=== PATIENT | female | born 1970 | race Caucasian/White ===

== ENCOUNTER → 2019-06-08 11:14 | Outpatient (BNVA) | payer BC, SELFPAY | PROVIDERS: Visit Provider Nurse Practitioner Family | DX: E03.9 Hypothyroidism, unspecified (principal) | CPT/HCPCS: 84443 ==

== ENCOUNTER → 2020-11-21 09:51 | Outpatient (BNVA) | payer SELFPAY | PROVIDERS: PCP Nurse Practitioner Family; Visit Provider Nurse Practitioner Family | DX: E03.9 Hypothyroidism, unspecified (principal); Z79.899 Other long term (current) drug therapy; E55.9 Vitamin D deficiency, unspecified; Z13.6 Encounter for screening for cardiovascular disorders | CPT/HCPCS: 36415; 80053; 80061; 81003; 82306; 83036; 84443; 85025 ==

== ENCOUNTER → 2020-12-31 09:31 | Outpatient (BNVA) | payer OTHER, SELFPAY | PROVIDERS: PCP Nurse Practitioner Family; Visit Provider Internal Medicine | DX: Z01.812 Encounter for preprocedural laboratory examination (principal); Z12.11 Encounter for screening for malignant neoplasm of colon | CPT/HCPCS: 87635 ==

== ENCOUNTER 2021-01-01 14:41 | Outpatient (CLI) | payer OTHER, SELFPAY ==
--- NOTE | 2021-01-01 15:00 | MM_ITS ---
WS: [id number] BILATERAL DIGITAL SCREENING MAMMOGRAPHY WITH CAD CLINICAL INFORMATION: Z12.31 - Encounter for screening mammogram for malignant ... HISTORY: Screening mammogram. No current complaints. COMPARISON: None. TECHNIQUE: Bilateral CC and MLO views. FINDINGS: The breasts are composed of heterogeneous fibroglandular density tissue, which can limit the detectio n of small underlying mass lesions. No suspicious mass, asymmetry, calcifications, or architectural d istortion. No evidence of malignancy. A few punctate calcifications. MM/[id number] IMPRESSION: BI-RADS: 2-Benign FOLLOW UP: 1 Year Follow-up Recommend return to annual screening mammography.
== END 2021-01-01 14:42 | disposition home or self-care (01) ==
PROVIDERS: PCP Nurse Practitioner Family; Visit Provider Nurse Practitioner Family
DX: Z12.31 Encounter for screening mammogram for malignant neoplasm of breast (principal)
CPT/HCPCS: 77067

== ENCOUNTER 2021-01-04 08:14 | Day surgery (SDC) | payer OTHER, SELFPAY ==
[2020-12-31 11:47] VITALS: BMI 29.0
[2021-01-04 08:36] VITALS: BP 170/103; PULSE 92; RESP 18; TEMP 36.3; O2SAT 98
[2021-01-04 08:48] LABS: OR HCG Qualitative Urine Negative (Negative)
[2021-01-04] MEDS: sodium chloride 0.9% 1,000 ML 30 ML IV (08:53)
--- NOTE | 2021-01-04 08:56 | P.ANESASSM_ITS ---
Documented by User: Doe Villavicencio Jr, CREDIT ADMINISTRATION OFFICER 01/04/21 08:58 Pre-Anesthetic Assessment Pre-Anesthetic Assessment: Height/Weight: Height 1.68 m Weight 81.647 kg Temp Pulse Resp BP Pulse Ox 97.3 F L 92 18 170/103 98 01/04/21 08:36 01/04/21 08:36 01/04/21 08:36 01/04/21 08:36 01/04/21 08:36 Preop Diagnosis: Screen Proposed Procedure: Operation Date: 01/04/21 09:00 Proposed Procedures p Colonoscopy G0121 Z12.11(Not Applicable) - John Linares MD Familial anesthetic complications: slow to wake Was Beta Naren taken within 24 hours: N/A Was Clonidine taken within 24 hours: N/A Last intake: Intake Last Liquid Date 01/03/21 Last Liquid Time 22:30 Last Solid Date 01/02/21 Last Intake: 22:30 Social: Social History: No alcohol and No tobacco Exam: Pre-Anes Outpt Exam: alert, oriented x 3, clear to auscultation bilaterally and regular rate & rhythm Airway: Submandibular: WNL Cervical ROM: WNL MP: 1 Dentition: Full Pulmonary: Pulmonary: None reported CV/HEM: CV/HEM: None reported : : None reported Hepatic: Hepatic: None reported GI: GI: None reported Metabolic: Metabolic: Thyroid and None reported Musc/skel: Musc/skel: None reported Neuropsych: Neuropsych: None reported Anesthetic Plan: ASA status: 1 Anesthesia: MAC Meds/Allergies Current Medications: Current Medications Generic Name Dose Route Start Last Admin Trade Name Freq PRN Reason Stop Dose Admin Sodium Chloride 1,000 mls @ 30 ml s/hr 01/04/21 08:30 01/04/21 08:53 Sodium Chloride 0.9% IV 01/05/21 08:29 30 mls/hr .Q24H TRICIA Administration PFSH Anesthesia PFSH: Medical History Breast cancer screening by mammogram Colon cancer screening Depression with anxiety Fatigue Hypertension screen Hypothyroid Medication management Obesity Vitamin D deficiency Social History Smoking and tobacco status: never smoked Second hand smoke exposure: No Alcohol intake: never Desire information about alcohol rehabilitation?: No Counseling given: No Desire information about substance/drug rehabilitation?: No Counseling given: No Data Anesthesia Other Labs: Laboratory Results - last 48 hr 01/04/21 08:47 Urine HCG, Qual Negative Cardiac Studies: No Data to Display Documented by User: Catracho Galvan 01/04/21 10:11 PFSH Anesthesia PFSH: Medical History Breast cancer screening by mammogram Colon cancer screening Depression with anxiety Fatigue Hypertension screen Hypothyroid Medication management Obesity Vitamin D deficiency Social History Smoking and tobacco status: never smoked Second hand smoke exposure: No Alcohol intake: never Desire information about alcohol rehabilitation?: No Counseling given: No Desire information about substance/drug rehabilitation?: No Counseling given: No Data Anesthesia Cardiac Studies: No Data to Display
--- NOTE | 2021-01-04 08:58 | W.PM.OPSFHP ---
Same Day Surgery H&P Indication for Procedure/HPI DATE OF PROCEDURE: January 04, 2021 CHIEF COMPLAINT/INDICATIONFOR SURGICAL PROCEDURE: Screening average risk PREOP DIAGNOSIS: Screen PLANNED PROCEDRUE: Operation Date: 01/04/21 09:00 Proposed Procedures p Colonoscopy G0121 Z12.11(Not Applicable) - John Linares MD Medications/Allergies* Allergies/Adverse Reactions Allergy/AdvReac Type Severity Reaction Status Date / Time No Known Allergies Allergy Verified 01/04/21 08:33 Current Medications: Generic Name Dose Route Start Last Admin Trade Name Freq PRN Reason Stop Dose Admin Sodium Chloride 1,000 mls @ 30 mls/hr 01/04/21 08:30 01/04/21 08:53 Sodium Chloride 0.9% IV 01/05/21 08:29 30 mls/hr .Q24H TRICIA Administration Pertinent History/Comorbid Conditions* Medical History (Updated 11/21/20 @ 09:44 by NAYELI Almanza) Breast cancer screening by mammogram Colon cancer screening Depression with anxiety Fatigue Hypertension screen Hypothyroid Medication management Obesity Vitamin D deficiency Social History Smoking and tobacco status: never smoked Second hand smoke exposure: No Alcohol intake: never Desire information about alcohol rehabilitation?: No Counseling given: No Desire information about substance/drug rehabilitation?: No Counseling given: No Pertinent Exam Findings alert, oriented x 3, clear to auscultation bilaterally, regular rate & rhythm, operative site marked and procedure specific exam findings Recommendations Surgery/Procedure today Coding Level of Care Code Acute Electroplating Sales Representative for Mauricio Irvin
[2021-01-04 09:29] VITALS: BP 117/87; PULSE 84; RESP 16; TEMP 36.1; O2SAT 98
[2021-01-04 09:42] VITALS: BP 133/89; PULSE 78; RESP 18; O2SAT 98
--- NOTE | 2021-01-04 10:11 | ANE.PACU2 ---
Inpatient post-anesthesia follow up: Airway intact: Yes Vital signs: Temperature 97 F Pulse Rate 78 Respiratory Rate 18 Blood Pressure 133/89 Pulse Oximetry 98 Oxygen Delivery Me thod Room Air Oxygen Flow Rate Fraction of Inspir ed Oxygen Hydration adequate: Yes Nausea and vomiting: No Pain level: 1 Mental status: Baseline
--- NOTE | 2021-01-04 10:27 | PM.PACU ---
PACU note Post-Anesthesia Exam: awake and vital signs stable Disposition: discharged
== END 2021-01-04 09:52 | disposition home or self-care (01) ==
PROVIDERS: Anesthesiology; PCP Nurse Practitioner Family; Visit Provider Internal Medicine
PROC: 0DJD8ZZ Inspection of Lower Intestinal Tract, Via Natural or Artificial Opening Endoscopic (ICD-10-PCS; CPT 45378; principal; 2021-01-04 09:00)
DX: Z12.11 Encounter for screening for malignant neoplasm of colon (principal); F41.8 Other specified anxiety disorders; E03.9 Hypothyroidism, unspecified; E66.9 Obesity, unspecified; Z68.29 Body mass index [BMI] 29.0-29.9, adult; E55.9 Vitamin D deficiency, unspecified
CPT/HCPCS: 45378; 81025; 84703; 96360; J2704; J7030

== ENCOUNTER → 2021-07-31 11:08 | Outpatient (BNVA) | payer OTHER, SELFPAY | PROVIDERS: PCP Nurse Practitioner Family; Visit Provider Nurse Practitioner Family | DX: E03.9 Hypothyroidism, unspecified (principal) | CPT/HCPCS: 84439; 84443; 84481 ==

== ENCOUNTER → 2021-09-18 00:01 | Outpatient (BNVA) | payer OTHER, SELFPAY | PROVIDERS: PCP Nurse Practitioner Family; Visit Provider Nurse Practitioner Family | DX: E03.9 Hypothyroidism, unspecified (principal); E78.5 Hyperlipidemia, unspecified | CPT/HCPCS: 80061; 84443 ==

== ENCOUNTER → 2021-11-15 08:46 | Outpatient (BNVA) | payer OTHER, SELFPAY | PROVIDERS: PCP Nurse Practitioner Family; Visit Provider Nurse Practitioner Family | DX: Z13.6 Encounter for screening for cardiovascular disorders (principal); E78.5 Hyperlipidemia, unspecified; E03.9 Hypothyroidism, unspecified; E66.9 Obesity, unspecified | CPT/HCPCS: 80053; 80061; 84443 ==

== ENCOUNTER → 2022-01-09 08:36 | Outpatient (BNVA) | payer OTHER, SELFPAY | PROVIDERS: PCP Nurse Practitioner Family; Visit Provider Nurse Practitioner Family | DX: E03.9 Hypothyroidism, unspecified (principal); E66.9 Obesity, unspecified | CPT/HCPCS: 84443 ==

== ENCOUNTER → 2022-03-20 11:17 | Outpatient (BNVA) | payer OTHER, SELFPAY | PROVIDERS: PCP Nurse Practitioner Family; Visit Provider Nurse Practitioner Family | DX: R74.8 Abnormal levels of other serum enzymes (principal); Z76.89 Persons encountering health services in other specified circumstances | CPT/HCPCS: 82977; 83615; 84450; 84460 ==

== ENCOUNTER → 2022-12-25 09:04 | Outpatient (BNVA) | payer OTHER, SELFPAY | PROVIDERS: PCP Nurse Practitioner Family; Visit Provider Nurse Practitioner Family | DX: E78.5 Hyperlipidemia, unspecified (principal); E03.9 Hypothyroidism, unspecified; R53.83 Other fatigue; I10 Essential (primary) hypertension | CPT/HCPCS: 80053; 80061; 84443; 85025 ==

== ENCOUNTER → 2024-02-12 08:16 | Outpatient (BNVA) | payer OTHER, SELFPAY | PROVIDERS: PCP Nurse Practitioner Family; Visit Provider Nurse Practitioner Family | DX: I10 Essential (primary) hypertension (principal); E78.5 Hyperlipidemia, unspecified; E03.9 Hypothyroidism, unspecified | CPT/HCPCS: 80053; 80061; 84443 ==

== ENCOUNTER → 2024-04-25 09:07 | Outpatient (BNVA) | payer OTHER, SELFPAY | PROVIDERS: PCP Nurse Practitioner Family; Visit Provider Nurse Practitioner Family | DX: R74.8 Abnormal levels of other serum enzymes (principal) | CPT/HCPCS: 82977; 83615; 84450; 84460 ==

== ENCOUNTER → 2025-03-22 08:29 | Outpatient (BNVA) | payer OTHER, SELFPAY | PROVIDERS: PCP Nurse Practitioner Family; Visit Provider Nurse Practitioner Family | DX: E03.9 Hypothyroidism, unspecified (principal) | CPT/HCPCS: 84443 ==